=== PATIENT | female | born 1990 | race Caucasian/White ===

== ENCOUNTER → 2016-11-08 | Outpatient (REF) | LOC: WSOH 08:00 | DX: Z01.89 Encounter for other specified special examinations (principal) ==

== ENCOUNTER → 2020-03-02 | Outpatient (CLI) | payer BC | LOC: COL.CARD 11:00 | DX: G43.009 Migraine without aura, not intractable, without status migrainosus (principal); R42 Dizziness and giddiness; R44.8 Other symptoms and signs involving general sensations and perceptions; R40.4 Transient alteration of awareness ==